=== PATIENT | female | born 1975 | race Caucasian/White ===

== ENCOUNTER 2022-12-06 05:35 | Day surgery (SDC) | payer OTHER ==
[~2022-12-06] VITALS: Ht 165.1 cm; Wt 65.3 kg
[2022-12-06] MEDS ORDERED: fentaNYL CITRATE/PF 100 MCG/2 ML AMP ONE (08:00)
[2022-12-06] MEDS ORDERED: SUGAMMADEX SODIUM 200 MG/2 ML VIAL IV ONE (08:00)
[2022-12-06] MEDS ORDERED: ROPIVACAINE HCL/PF 0.2% EPIDURAL 100 ML PLAST..BAG ONE (08:00)
[2022-12-06] MEDS ORDERED: NS IRRIG SOLN 1000 ML IR ONE (08:00)
[2022-12-06] MEDS ORDERED: KETOROLAC TROMETHAMINE 30 MG VIAL ONE (08:00)
[2022-12-06] MEDS ORDERED: MIDAZOLAM HCL 2 MG/2 ML VIAL (VERSED) ONE (08:00)
[2022-12-06] MEDS ORDERED: BUPIVACAINE /PF 0.5% 30 ML VIAL ONE (08:00)
[2022-12-06] MEDS ORDERED: DESFLURANE 15 MIN GAS INH ONE (08:00)
[2022-12-06] MEDS ORDERED: FUROSEMIDE 40 MG/4 ML VIAL ONE (08:00)
[2022-12-06] MEDS ORDERED: NS 1000 ML IV.SOLN IV ONE (08:00)
[2022-12-06] MEDS ORDERED: ceFAZolin SODIUM 2 GM VIAL ONE (08:00)
[2022-12-06] MEDS ORDERED: BUPIVACAINE /EPINEPHRINE/PF 0.5% 30 ML VIAL INJ ONE (08:00)
[2022-12-06] MEDS ORDERED: PROPOFOL 200MG/ 20ML VIAL (DIPRIVAN) IV ONE (08:00)
[2022-12-06] MEDS ORDERED: ROCURONIUM BROMIDE 10 MG/ML (ZEMURON) ONE (08:00)
[2022-12-06] MEDS ORDERED: DEXAMETHASONE SOD PHOSPHATE 4 MG/ML VIAL ONE (08:00)
[2022-12-06] MEDS ORDERED: ONDANSETRON HCL 4 MG/2 ML VIAL ONE (08:00)
[2022-12-06] MEDS ORDERED: ROPIVACAINE HCL/PF 0.2% EPIDURAL 200 ML PLAST..BAG ONE (08:00)
[2022-12-06] MEDS ORDERED: DEXTROSE 50% JECT 50 ML DISP.SYRIN ONE (08:00)
[2022-12-06] MEDS ORDERED: LR 1,000 ML IV.SOLN IV ONE (08:00)
[2022-12-06] MEDS ORDERED: MEPERIDINE HCL/PF 25 MG/ML DISP.SYRIN IVP PRN (08:45)
[2022-12-06] MEDS ORDERED: METOCLOPRAMIDE HCL 10 MG/2 ML VIAL IVP PRN (08:45)
[2022-12-06] MEDS ORDERED: hydrALAZINE HCL 20 MG/ML VIAL IVP PRN (08:45)
[2022-12-06] MEDS ORDERED: LABETALOL 100 MG/ 20ML VIAL IVP PRN (08:45)
[2022-12-06] MEDS ORDERED: HYDROmorphone 1 MG/ML INJ. CARTRIDGE IVP PRN ×2 (08:45)
[2022-12-06] MEDS ORDERED: MIDAZOLAM HCL 2 MG/2 ML VIAL (VERSED) IVP PRN (08:45)
[2022-12-06] MEDS ORDERED: LR 1,000 ML IV SCH (08:45)
[2022-12-06] MEDS ORDERED: ACETAMINOPHEN I.V. 1000 MG 100 ML IV ONE (09:51)
[2022-12-06] MEDS ORDERED: ONDANSETRON HCL 4 MG/2 ML VIAL IVP PRN (11:30)
[2022-12-06] MEDS ORDERED: HYDROcodone/ACETAMIN 5-325 MG TAB (NORCO/ VICODIN) PO PRN (11:30)
[2022-12-06] MEDS ORDERED: OXYCODONE/ACETAMINOPHEN 5-325 TABLET PO PRN ×2 (11:30)
[2022-12-06] MEDS ORDERED: MEPERIDINE HCL/PF 25 MG/ML DISP.SYRIN ONE (11:50)
[2022-12-06] MEDS: HYDROmorphone 1 MG/ML INJ. CARTRIDGE ONE ×2 (12:00→12:05)
[2022-12-06 13:40] VITALS: BP_SYST 120
[2022-12-06] MEDS ORDERED: OXYCODONE/ACETAMINOPHEN 5-325 TABLET ONE (15:45)
== END 2022-12-06 17:20 | disposition home or self-care (01) ==
LOC: SMU 05:35 → SDS 05:35
PROVIDERS: ATTEND Specialist
DX: N94.10 Unspecified dyspareunia (principal); R19.00 Intra-abdominal and pelvic swelling, mass and lump, unspecified site; N80.9 Endometriosis, unspecified; R10.2 Pelvic and perineal pain; Z20.822 Contact with and (suspected) exposure to COVID-19; Z79.899 Other long term (current) drug therapy
CPT/HCPCS: 87081; 58552; 64488; 36415; 88307; 87426; J3490 ×2; J1100; J1940; J1885; J3465; J2405; J2704; J2795; J3010; J1170; J2175; J7120; J7030; C1727; J0131